=== PATIENT | female | born 1950 | race Caucasian/White ===

== ENCOUNTER 2020-09-03 01:33 | Emergency (ER) | payer MEDICARE, OTHER ==
[~2020-09-03] VITALS: Ht 160 cm; Wt 81.6 kg
--- NOTE | 2020-09-03 02:13 | NUR ---
Pt states that tonight she started having pain in her left foot, up her payne. Could see an indent, that has now travled up her leg to her knee. Pt states concerns for DVT. Pt with + CMS to left foot. Foot warm and pink. Pt denies the need for pain meds at this time. Warm blanket given. Pillow given. Pt made comfortable. Call light in reach. will monitor.
[2020-09-03 04:07] VITALS: BP 153/52
--- NOTE | 2020-09-03 04:09 | NUR ---
Pt dc'd to home with written and verbal instructions. Pt states understanding. Pt ambulatory out of ED without difficulty. Pt with stable VS and in no distress.
== END 2020-09-03 04:14 | disposition home or self-care (01) ==
LOC: ED 03:56
DX: M79.662 Pain in left lower leg (principal); I10 Essential (primary) hypertension; J45.909 Unspecified asthma, uncomplicated
CPT/HCPCS: 99284

== ENCOUNTER 2020-10-22 10:00 | Emergency (ER) | payer MEDICARE ==
[~2020-10-22] VITALS: Ht 160 cm; Wt 82.5 kg
[2020-10-22 10:39] LABS: BASOPHILS % (AUTO) 1 % (0-1); EOSINOPHILS % (AUTO) 4 % (1-7); LYMPHOCYTES % (AUTO) 25 % (22-44); MEAN CORPUSCULAR HEMOGLOBIN 31.3 pg (27.0-34.8); MEAN CORPUSCULAR HGB CONC 34.8 g/dL (32.4-35.8); MEAN PLATELET VOLUME 8.1 fL (7.4-10.4); MONOCYTES % (AUTO) 8 % (2-9); NEUTROPHILS % (AUTO) 62 % (42-75); PLATELET COUNT 226 x10^3/uL (130-400); RED CELL DISTRIBUTION WIDTH 13.5 % (9.6-15.2)
[2020-10-22 10:45] LABS: MD NO
[2020-10-22 10:51] LABS: ALANINE AMINOTRANSFERASE 34 U/L (12-78); ALBUMIN 3.8 g/dL (3.4-5.0); ANION GAP 3 mmol/L (5-15); CALCIUM 8.8 mg/dL (8.5-10.1); CHLORIDE 112 mmol/L (98-107); CREATININE 0.81 mg/dL (0.55-1.02)
[2020-10-22] MEDS ORDERED: ASPIRIN 81 MG TABLET CHEW ONE (10:52)
[2020-10-22 10:56] LABS: ALKALINE PHOSPHATASE 94 U/L (45-117); BILIRUBIN,TOTAL 0.5 mg/dL (0.2-1.0); TOTAL PROTEIN 6.8 g/dL (6.4-8.2); TROPONIN I < 0.015 ng/mL (0.000-0.045)
[2020-10-22] MEDS ORDERED: ASPIRIN 81 MG TABLET CHEW PO ONE (11:00)
[2020-10-22] MEDS ORDERED: SODIUM CHLORIDE FLUSH 10ML SYR IVF ONE (11:00)
[2020-10-22] MEDS ORDERED: TEMA22.5 PO (11:18)
[2020-10-22] MEDS ORDERED: [UNRECOGNIZED DRUG - CODE] PO (11:19)
[2020-10-22] MEDS ORDERED: ALLO100T30 PO (11:20)
[2020-10-22] MEDS ORDERED: LISI-167 PO (11:20)
[2020-10-22] MEDS ORDERED: METH5TAB12 PO (11:21)
[2020-10-22] MEDS ORDERED: DIPHENHYDRAMINE 50 MG/ML, 1ML ONE (12:14)
[2020-10-22] MEDS ORDERED: FAMOTIDINE 20 MG/2 ML ONE (12:14)
[2020-10-22] MEDS ORDERED: methylPREDNISolone SOD SUCC 125 MG/2 ML ONE (12:14)
[2020-10-22] MEDS ORDERED: DIPHENHYDRAMINE 50 MG/ML, 1ML IVPush ONE (12:30)
--- NOTE | 2020-10-22 12:30 | NUR ---
TASK RN: PT TO CT.
[2020-10-22] MEDS ORDERED: OMNIPAQUE 350 MG/ML, 75ML BOTTLE ONE (12:49)
[2020-10-22] MEDS ORDERED: methylPREDNISolone SOD SUCC 125 MG/2 ML IVPush ONE (13:00)
[2020-10-22] MEDS ORDERED: FAMOTIDINE 20 MG/2 ML IVPush ONE (13:00)
[2020-10-22 14:35] LABS: TROPONIN I < 0.015 ng/mL (0.000-0.045)
[2020-10-22 15:33] VITALS: BP 151/81
--- NOTE | 2020-10-22 15:35 | NUR ---
Patient given discharge instructions and they have confirmed that they understand the instructions. Patient ambulatory with steady gait.
== END 2020-10-22 15:36 | disposition home or self-care (01) ==
LOC: ED 10:16
DX: R07.89 Other chest pain (principal); R06.02 Shortness of breath; R00.2 Palpitations; I10 Essential (primary) hypertension; M10.9 Gout, unspecified; J45.909 Unspecified asthma, uncomplicated
CPT/HCPCS: 36415; 71045; 71275; 80053; 84484; 85025; 85379; 93005; 96374; 96375; 99285; J1200; J2930; Q9967

== ENCOUNTER 2020-11-27 08:23 | Outpatient (CLI) | payer MEDICARE ==
[~2020-11-27 08:23] MED LIST: ALLO100T30 PO; LISI-167 PO; METH5TAB12 PO; TEMA22.5 PO; [UNRECOGNIZED DRUG - CODE] PO
[2020-12-04] MEDS ORDERED: PRAM1TAB PO (15:26)
[2020-12-04] MEDS ORDERED: ALBU90AE INH (15:26)
[2020-12-04] MEDS ORDERED: vitamin c PO (15:26)
== END 2020-11-27 23:59 | disposition home or self-care (01) ==
LOC: CFH 08:23
PROVIDERS: ATTEND Internal Medicine
DX: R91.8 Other nonspecific abnormal finding of lung field (principal)
CPT/HCPCS: 71250

== ENCOUNTER 2020-12-06 09:12 | Day surgery (SDC) | payer MEDICARE ==
[2020-12-04 16:09] LABS: MICROSCOPIC AUTO
[2020-12-04 16:16] LABS: ANION GAP 4 mmol/L (5-15); CHLORIDE 109 mmol/L (98-107); CREATININE 0.62 mg/dL (0.55-1.02)
[2020-12-04 16:17] LABS: ALANINE AMINOTRANSFERASE 31 U/L (12-78); ALBUMIN 4.2 g/dL (3.4-5.0)
[2020-12-04 16:18] LABS: ALKALINE PHOSPHATASE 106 U/L (45-117); BILIRUBIN,TOTAL 0.5 mg/dL (0.2-1.0); TOTAL PROTEIN 7.6 g/dL (6.4-8.2)
[~2020-12-06] VITALS: Ht 160 cm; Wt 80.3 kg
[~2020-12-06 09:12] MED LIST changes: +ALBU90AE INH; +PRAM1TAB PO; +vitamin c PO
[2020-12-06] MEDS ORDERED: CHLORHEXIDINE 15 ML UDC PO ONE (09:30)
[2020-12-06] MEDS ORDERED: LACTATED RINGERS 1,000 ML IV SCH (09:30)
[2020-12-06] MEDS ORDERED: CHLORHEXIDINE 15 ML UDC ONE (09:32)
[2020-12-06 09:51] VITALS: BP 164/89
[2020-12-06] MEDS ORDERED: FENTANYL PF 250 MCG/5ML ONE (12:15)
[2020-12-06] MEDS ORDERED: PROPOFOL 50 ML ONE (12:30)
[2020-12-06] MEDS ORDERED: PROPOFOL 10 MG/ML, 20ML ONE ×2 (12:30→12:31)
[2020-12-06] MEDS ORDERED: ONDANSETRON 2MG/ML, 2ML ONE (12:31)
[2020-12-06] MEDS ORDERED: DEXAMETHASONE 4 MG/ML, 5ML ONE (12:31)
[2020-12-06] MEDS ORDERED: SUCCINYLCHOLINE 20 MG/ML, 10ML ONE (12:31)
[2020-12-06] MEDS ORDERED: ROCURONIUM 10MG/ML,5ML ONE (12:31)
[2020-12-06] MEDS ORDERED: FENTANYL PF 100 MCG/2ML IV PRN (13:00)
[2020-12-06] MEDS ORDERED: PROMETHAZINE 25 MG/ML, 1ML IVPush PRN (13:00)
[2020-12-06] MEDS ORDERED: HYDROmorphone 1 MG/ML, 1ML INJ IVPush PRN (13:00)
[2020-12-06] MEDS ORDERED: DIPHENHYDRAMINE 50 MG/ML, 1ML IVPush PRN (13:00)
[2020-12-06] MEDS ORDERED: ONDANSETRON 2MG/ML, 2ML IVPush PRN (13:00)
[2020-12-06] MEDS ORDERED: LABETALOL 5MG/ML, 20ML IV PRN (13:00)
[2020-12-06] MEDS ORDERED: EPHEDRINE 50 MG/ML, 1ML IM PRN (13:00)
[2020-12-06] MEDS ORDERED: EPHEDRINE 50 MG/ML, 1ML IVPush PRN (13:00)
[2020-12-06] MEDS ORDERED: OXYcodone 5 MG/5 ML ORAL.SOL UDC PO PRN (13:00)
[2020-12-06] MEDS ORDERED: DIAZEPAM 5 MG/ML, 2ML IVPush PRN (13:00)
[2020-12-06] MEDS ORDERED: SUGAMMADEX 200 MG/2 ML IVPush ONE (13:09)
[2020-12-06] MEDS ORDERED: ALBUTEROL HFA 90 MCG/SPRAY INH PRN (14:00)
[2020-12-06] MEDS ORDERED: OXYcodone 5 MG/5 ML ORAL.SOL UDC ONE (14:18)
== END 2020-12-06 16:05 | disposition home or self-care (01) ==
LOC: OUT 09:12
PROVIDERS: ATTEND Internal Medicine
DX: R91.8 Other nonspecific abnormal finding of lung field (principal); I10 Essential (primary) hypertension; F17.210 Nicotine dependence, cigarettes, uncomplicated; Z20.822 Contact with and (suspected) exposure to COVID-19; Z79.82 Long term (current) use of aspirin; Z79.899 Other long term (current) drug therapy; Z88.8 Allergy status to other drugs, medicaments and biological substances
CPT/HCPCS: 31624; 31627; 31628; 31629; 36415; 71045; 80053; 81001; 87086; 88112; 88172; 88173; 88305; 93005; J0330; J1100; J2405; J2704; J3010; J7120; U0003; U0005; 31625

== ENCOUNTER → 2021-02-07 | Outpatient (CLI) | payer MEDICARE, MEDICAID | END | disposition home or self-care (01) | LOC: CFH 10:44 | PROVIDERS: ATTEND Internal Medicine | DX: R91.8 Other nonspecific abnormal finding of lung field (principal) | CPT/HCPCS: 71250 ==